=== PATIENT | female | born 1960 | race African-American/Black ===

== ENCOUNTER 2017-03-11 18:11 | Emergency (ER) | payer OTHER ==
[~2017-03-11] VITALS: Ht 175.3 cm; Wt 77.1 kg
[~2017-03-11 18:11] MED LIST: ALBUTEROL SULF8.5 GM INH; DILANTIN100 MG PO; HYDROCODON-ACE1 EA15 ORAL; IBUPROFEN600 M1 PO; IBUPROFEN600 MG ORAL; NORCO 5-325 TA1 EACH ORAL; TRAMADOL HCL50 MG ORAL; VALIUM5 MG ORAL; VICODIN 5-5001 EACH PO
[2017-03-11] MEDS ORDERED: Ketorolac 30mg Inj IV ONE (18:45)
[2017-03-11] MEDS ORDERED: DiphenhydrAMINE 50mg/ml Inj IVP ONE (18:45)
[2017-03-11] MEDS ORDERED: Metoclopramide 10mg/2ml Inj IVP ONE (18:45)
[2017-03-11] MEDS ORDERED: Morphine Sulfate 4mg/ml Inj IVP ONE (18:45)
[2017-03-11 18:58] VITALS: BP 119/85
[2017-03-11 19:12] LABS: APPEARANCE,URINE CLEAR; KETONES,URINE 1+ (NEGATIVE); LEUKOCYTE ESTERASE ,URINE 3+ (NEGATIVE); NITRITE,URINE NEGATIVE (NEGATIVE); PH,URINE 5 (4.5-8.0); PROTEIN,URINE 1+ (NEGATIVE); UROBILINOGEN,URINE 8 MG/DL (0.0-1.0)
[2017-03-11 19:14] LABS: BASOPHILS % (AUTO) 1.3 % (0.0-2.0); EOSINOPHILS % (AUTO) 1.1 % (0.0-3.0); LYMPHOCYTES % (AUTO) 31.3 % (20.0-45.0); MEAN CORPUSCULAR HEMOGLOBIN 29.4 PG (27.0-31.0); MEAN CORPUSCULAR HGB CONC 34.5 G/DL (32.0-36.0); MEAN CORPUSCULAR VOLUME 85 FL (80-99); MEAN PLATELET VOLUME 8.7 FL (6.5-10.1); MONOCYTES % (AUTO) 5.3 % (1.0-10.0); NEUTROPHILS % (AUTO) 60.9 % (45.0-75.0); PLATELET COUNT 273 K/UL (150-450); RED BLOOD COUNT 5.06 M/UL (4.20-5.40); RED CELL DISTRIBUTION WIDTH 12.8 % (11.6-14.8); WHITE BLOOD COUNT 9.8 K/UL (4.8-10.8)
[2017-03-11 19:21] LABS: BACTERIA,URINE MODERATE /HPF; SQUAMOUS EPITHELIAL CELL,UR FEW /LPF (NONE/OCC)
[2017-03-11 19:30] LABS: ALANINE AMINOTRANSFERASE 18 U/L (3-33); ALBUMIN/GLOBULIN RATIO 1.1 (1.0-2.7); ANION GAP 15 (5-15); ASPARTATE AMINO TRANSFERASE 19 U/L (5-40); CALCIUM 9.8 mg/dL (8.6-10.2); CARBON DIOXIDE 27 mEQ/L (20-30); CHLORIDE 100 mEQ/L (98-107); CREATININE 0.9 mg/dL (0.5-0.9); GLOMERULAR FILTRATION RATE > 60 mL/min (>60); HEMOLYSIS 4; LIPASE 21 U/L (< 60); POTASSIUM 4.1 mEQ/L (3.4-4.9); SODIUM 142 mEQ/L (135-145); TOTAL PROTEIN 7.8 g/dL (6.6-8.7)
--- NOTE | 2017-03-11 19:39 | Emergency Room Report ---
History of Present Illness General Chief Complaint: Headache Source: Patient (TERRA KATZ M.D.) Present Illness HPI 56-year-old female presents to ED complaining of headache x4 days. Notes headache as throbbing behind both eyes radiating to the back of the head. 10 out of 10. Denies photophobia, blurry vision. Denies nausea or vomiting. Denies neck stiffness fevers or chills. Notes history of migraines. Patient also notes history of seizures and takes Dilantin. She has not seen her neurologist in some time. No other aggravating or relieving factors. Denies any other associated symptom (TERRA KATZ M.D.) Allergies: Coded Allergies: No Known Allergies (Unverified , 12/29/15) Patient History Past Medical History: asthma, GERD, seizures, migraines Past Surgical History: none Pertinent Family History: none Social History: Denies: alcohol use, drug use, smoking Now: No Immunizations: UTD Reviewed Nursing Documentation: PMH: Agreed, PSxH: Agreed (TERRA KATZ M.D.) Nursing Documentation-PMH Past Medical History: No History, Except For Hx Cardiac Problems: Yes Hx Asthma: Yes Hx Gastrointestinal Problems: Yes - gastritis Hx Neurological Problems: Yes - Migraine Hx Seizures: Yes (TERRA KATZ M.D.) Review of Systems All Other Systems: negative except mentioned in HPI (TERRA KATZ M.D.) Physical Exam Vital Signs Date Time Temp Pulse Resp B/P Pulse Ox O2 Delivery O2 Flow Rate FiO2 20/17 18:24 99.0 72 16 114/72 97 Room Air Sp02 EP Interpretation: reviewed, normal General Appearance: no apparent distress, alert, GCS 15, non-toxic Head: normocephalic, atraumatic Eyes: bilateral eye PERRL, bilateral eye normal inspection ENT: hearing grossly normal, normal pharynx, no angioedema, normal voice Neck: full range of motion, supple, no meningismus, supple/symm/no masses Respiratory: chest non-tender, lungs clear, normal breath sounds, speaking full sentences Cardiovascular #1: regular rate, rhythm, no edema Cardiovascular #2: 2+ carotid (R), 2+ carotid (L), 2+ radial (R), 2+ radial (L) , 2+ dorsalis pedis (R), 2+ dorsalis pedis (L) Gastrointestinal: normal bowel sounds, non tender, soft, non-distended, no guarding, no rebound Rectal: deferred Genitourinary: normal inspection, no CVA tenderness Musculoskeletal: back normal, gait/station normal, normal range of motion, non- tender Neurologic: alert, oriented x3, responsive, motor strength/tone normal, sensory intact, speech normal Psychiatric: judgement/insight normal, memory normal, mood/affect normal, no suicidal/homicidal ideation Reflexes: 3+ bicep (R), 3+ bicep (L), 3+ tricep (R), 3+ tricep (L), 3+ knee (R) , 3+ knee (L) Skin: normal color, no rash, warm/dry, well hydrated Lymphatic: no adenopathy (TERRA KATZ M.D.) Medical Decision Making Diagnostic Impression: Primary Impression: Headache Qualified Codes: R51 - Headache Additional Impression: UTI (urinary tract infection) Qualified Codes: N30.00 - Acute cystitis without hematuria ER Course Since sign out to me from previous Dr. Patient presents with headache. No evidence of meningitis, bleed, or neoplastic process. She fell better now. She does have a urinary tract infection. We'll discharge home with antibiotics also. Lab Results Impression labs normal (JOAQUIM DYKES M.D.) Last Vital Signs Date Time Temp Pulse Resp B/P Pulse Ox O2 Delivery O2 Flow Rate FiO2 03/11/17 18:58 98.6 67 18 119/85 98 Room Air (TERRA KATZ M.D.) Status: improved (JOAQUIM DYKES M.D.) Disposition: HOME, SELF-CARE Condition: Stable Scripts Nitrofurantoin Monohyd/M-Cryst (Nitrofurantoin [place]-Mcr 100 mg) 100 Mg Capsule 100 MG ORAL Q12H, #14 CAP Prov: JOAQUIM DYKES M.D. 03/11/17 Ibuprofen* (MOTRIN*) 600 Mg Tablet 600 MG ORAL THREE TIMES A DAY, #30 TAB 0 Refills Prov: JOAQUIM DYKES M.D. 03/11/17 Referrals: [facility],REF[facility] (PCP) Patient Instructions: Migraine Headache Additional Instructions: Followup with your Dr. in 7 days. Return if symptom worsen. TERRA KATZ M.D. March 11, 2017 19:39 JOAQUIM DYKES M.D. March 11, 2017 20:11
[2017-03-11] MEDS ORDERED: cefTRIAXone 1 GM in NS 55 ML IVPB ONE (19:45)
[2017-03-11] MEDS ORDERED: IBUPROFEN600 MG ORAL (20:10)
[2017-03-11] MEDS ORDERED: MACROBID100 MG ORAL (20:10)
[2017-03-11 20:21] VITALS: BP 114/66
[2017-03-11 20:22] VITALS: BP 119/85
== END 2017-03-11 20:22 | disposition home or self-care (01) ==
LOC: EMR 18:48
DX: R51 Headache (principal); N30.00 Acute cystitis without hematuria; G40.909 Epilepsy, unspecified, not intractable, without status epilepticus; K21.9 Gastro-esophageal reflux disease without esophagitis; J45.909 Unspecified asthma, uncomplicated
CPT/HCPCS: 36415; 80053; 80300; 81003; 83690; 85025; 87086; 87181; 96360; 96361; 96374; 96375; 99284; J0696; J1200; J1885; J2765

== ENCOUNTER 2018-12-17 19:28 | Emergency (ER) | payer OTHER ==
[~2018-12-17] VITALS: Ht 175.3 cm; Wt 89.8 kg
[~2018-12-17 19:28] MED LIST changes: +MACROBID100 MG ORAL
--- NOTE | 2018-12-17 19:48 | NUR ---
ED Nurse Note: pt walked in due to bilateral eye redness and itchiness x 1 week. Right eye red with clear discharge noted. AO4. NAD. VSS
[2018-12-17 19:55] VITALS: BP 146/85
[2018-12-17] MEDS ORDERED: Tetracaine 0.5% Opth 4ml Soln RIGHT EYE ONE (20:30)
[2018-12-17] MEDS ORDERED: Fluorescein Strips RIGHT EYE ONE (20:30)
--- NOTE | 2018-12-17 20:49 | Emergency Room Report ---
History of Present Illness General Chief Complaint: Eye Problems Present Illness HPI 58-year-old female presents to the emergency department complaining of itching, erythema and burning sensation that she rates as 10 out of 10 in severity to the right thigh 1 week. Patient reports she was evaluated once an urgent care and had irrigation performed and was discharged. Patient states that she continues to have increased lacrimation and now some photo sensitivity. Patient denies contact lens use she did report initial foreign body scratching sensation which improved after irrigation urgent care. Patient denies loss of vision, floaters, changes in her vision, lid swelling or crusting. Patient did state that this morning upon awakening she felt as though her right eye was somewhat stuck shut. Allergies: Coded Allergies: No Known Allergies (Unverified , 12/29/15) Patient History Past Medical History: see triage record Past Surgical History: none Pertinent Family History: none Last Menstrual Period: a decade ago Now: No : 3 Para: 2 Reviewed Nursing Documentation: PMH: Agreed; PSxH: Agreed Nursing Documentation-PMH Hx Cardiac Problems: Yes Hx Asthma: Yes Hx Gastrointestinal Problems: Yes - gastritis Hx Neurological Problems: Yes - Migraine Hx Seizures: Yes Review of Systems All Other Systems: negative except mentioned in HPI Physical Exam Vital Signs Date Time Temp Pulse Resp B/P (MAP) Pulse Ox O2 Delivery O2 Flow Rate FiO2 12/17/18 19:40 97.9 71 16 146/85 98 Room Air Sp02 EP Interpretation: reviewed, normal General Appearance: no apparent distress, alert, GCS 15, non-toxic Head: normocephalic, atraumatic Eyes: right eye photophobia, right eye other - -Increase fluorescein uptake in a linear fashion in the 7 o'clock position of the Right eye, there is no involvement of the iris or pupil. Negative Laurita sign. ; bilateral eye normal inspection, bilateral eye PERRL, bilateral eye EOMI, bilateral eye visual acuity ENT: hearing grossly normal, normal voice Neck: full range of motion Respiratory: lungs clear, normal breath sounds, speaking full sentences Cardiovascular #1: regular rate, rhythm Musculoskeletal: back normal, gait/station normal, normal range of motion, non- tender Neurologic: alert, oriented x3, responsive, motor strength/tone normal, sensory intact, speech normal, grossly normal Psychiatric: judgement/insight normal Skin: normal color, no rash, warm/dry, well hydrated Lymphatic: no adenopathy Medical Decision Making PA Attestation Dr. Roque is my supervising Physician whom patient management has been discussed with. Diagnostic Impression: Primary Impression: Corneal abrasion, right Qualified Codes: S05.01XA - Injury of conjunctiva and corneal abrasion without foreign body, right eye, initial encounter ER Course 58-year-old female presents to the emergency department complaining of itching, erythema and burning sensation that she rates as 10 out of 10 in severity to the right thigh 1 week. Patient reports she was evaluated once an urgent care and had irrigation performed and was discharged. Patient states that she continues to have increased lacrimation and now some photo sensitivity. Patient denies contact lens use she did report initial foreign body scratching sensation which improved after irrigation urgent care. Patient denies loss of vision, floaters, changes in her vision, lid swelling or crusting. Patient did state that this morning upon awakening she felt as though her right eye was somewhat stuck shut. - Pt denies Contact lens use. Ddx considered but are not limited to: corneal abrasion, acute glaucoma, globe rupture, FB, Corneal Ulcer, conjunctivitis. Iridis Vital signs: are WNL, pt. is afebrile H&PE are most consistent with: corneal abrasion ORDERS: -Tetracaine and Fluorescein Stain of the Right eye: -Increase fluorescein uptake in a linear fashion in the 7 o'clock position of the Right eye, there is no involvement of the iris or pupil. Negative Laurita sign. Pt. had positive relief of pain with tetracaine drops. there was negative evidence of Fb, deep ulcer, or rupture. ED INTERVENTIONS: none at this time. DISCHARGE: At this time pt. is stable for d/c to home. Will provide printed patient care instructions, and any necessary prescriptions. Care plan and follow up instructions have been discussed with the patient prior to discharge. . Last Vital Signs Date Time Temp Pulse Resp B/P (MAP) Pulse Ox O2 Delivery O2 Flow Rate FiO2 12/17/18 19:55 97.9 97 16 146/85 98 Room Air Disposition: HOME, SELF-CARE Condition: Stable Scripts Acetaminophen* (TYLENOL EXTRA STRENGTH*) 500 Mg Tablet 500 MG ORAL Q6H, #20 TAB 0 Refills Prov: Kelsie Flores 12/17/18 Ofloxacin (OCUFLOX) 5 Ml Drops 2 DROP OP TID for 5 Days, #5 ML Prov: Kelsie Flores 12/17/18 Referrals: [facility],REFER (PCP) Patient Instructions: Corneal Abrasion, [id number] Additional Instructions: Take medications as directed. Follow up with a Ecotherapist in 3 days, even if your symptoms have resolved. --Please review list of primary care clinics, if you do not already have a primary care provider Return sooner to ED if new symptoms occur, or current symptoms become worse. - Please note that this Emergency Department Report was dictated using [employer] log clerk technology software, occasionally this can lead to erroneous entry secondary to interpretation by the dictation equipment. Kelsie Flores Dec 17, 2018 20:49
[2018-12-17] MEDS ORDERED: OCUFLOX5 ML OP (20:50)
[2018-12-17] MEDS ORDERED: TYLENOL EXTRA500 MG ORAL (20:51)
[2018-12-17 20:55] VITALS: BP 146/85
--- NOTE | 2018-12-17 20:55 | NUR ---
ED Nurse Note: Patient cleared cleared for discharge per ERMD. AO4. NAD. VSS. Patient given prescriptions and discharge instructions; verbalized understanding. ID removed. Patient ambulated steady out of ED with all belongings.
== END 2018-12-17 20:55 | disposition home or self-care (01) ==
LOC: EMR 20:00
DX: S05.01XA Injury of conjunctiva and corneal abrasion without foreign body, right eye, initial encounter (principal); X58.XXXA Exposure to other specified factors, initial encounter; Y92.9 Unspecified place or not applicable; J45.909 Unspecified asthma, uncomplicated
CPT/HCPCS: 99282

== ENCOUNTER 2020-01-14 13:28 | Emergency (ER) | payer OTHER ==
[~2020-01-14] VITALS: Ht 175.3 cm; Wt 79.4 kg
[~2020-01-14 13:28] MED LIST changes: +OCUFLOX5 ML OP; +TYLENOL EXTRA500 MG ORAL
--- NOTE | 2020-01-14 13:52 | NUR ---
ED Nurse Note: pt presents from home with c/o body aches, chills and productive cough of clear mucous. denies fever or n/v. no dyspnea at triage. a/ox4
[2020-01-14 13:54] VITALS: BP 131/67
[2020-01-14] MEDS ORDERED: TAMIFLU75 MG ORAL (14:22)
[2020-01-14] MEDS ORDERED: ALBUTEROL SULF8.5 GM INH (14:22)
[2020-01-14] MEDS ORDERED: PREDNISONE20 MG ORAL (14:22)
[2020-01-14] MEDS ORDERED: PROMETHAZINE-D118 ML ORAL (14:22)
[2020-01-14] MEDS ORDERED: Ipratropium 0.02% Inh Soln 2.5ml UD HHN ONE (14:30)
[2020-01-14] MEDS ORDERED: Albuterol ud Inhalation HHN ONE (14:30)
--- NOTE | 2020-01-14 14:31 | NUR ---
ED Nurse Note: resp therapist here to administer hhn. pt tolerates po meds well.
--- NOTE | 2020-01-14 14:51 | NUR ---
ED Nurse Note: pt relates feeling improved after hhn given.
--- NOTE | 2020-01-14 14:53 | NUR ---
ED Nurse Note: Pt cleared by health care Provider for discharge. DC instructions/prescription was given and explained to pt and verbalized understanding of teachings. All medical devices such as ID band removed. Pt is AAO x4, ambulatory and left with all personal belongings. covid19 discussed and pt aware precautions
[2020-01-14 14:54] VITALS: BP 131/67
--- NOTE | 2020-01-14 15:47 | Emergency Room Report ---
History of Present Illness General Chief Complaint: Flu Like Symptoms Source: Patient Present Illness HPI 59-year-old female presents ED for evaluation. Complaining of cough sore throat body aches and chills for the last 4 days. Pain is dull, 7 out of 10, nonradiating. Cough is productive with yellowish phlegm. Notes history of asthma. Vaccinations up-to-date received flu shot this year. Denies sick contacts or recent travel. No other aggravating relieving factors. Denies any other associated symptoms Allergies: Coded Allergies: PENICILLINS (Verified Allergy, Unknown, 01/14/20) COVID-19 Screening Contact w/high risk pt: No Recent Travel to affected area: No Experienced COVID-19 symptoms?: Yes COVID-19 symptoms experienced: Cough, Flu-Like Symptoms Patient History Past Medical History: asthma, GERD, migraines Past Surgical History: none Pertinent Family History: none Social History: Denies: smoking, alcohol use, drug use Last Menstrual Period: na Now: No Immunizations: UTD Reviewed Nursing Documentation: PMH: Agreed; PSxH: Agreed Nursing Documentation-PMH Past Medical History: No History, Except For Hx Cardiac Problems: Yes Hx Asthma: Yes Hx Gastrointestinal Problems: Yes - gastritis Hx Neurological Problems: Yes - Migraine Hx Seizures: Yes Review of Systems All Other Systems: negative except mentioned in HPI Physical Exam Vital Signs Date Time Temp Pulse Resp B/P (MAP) Pulse Ox O2 Delivery O2 Flow Rate FiO2 01/14/20 13:27 98.2 71 18 131/67 (88) 97 Room Air Sp02 EP Interpretation: reviewed, normal General Appearance: no apparent distress, alert, GCS 15, non-toxic Head: normocephalic, atraumatic Eyes: bilateral eye normal inspection, bilateral eye PERRL ENT: hearing grossly normal, normal pharynx, no angioedema, normal voice Neck: full range of motion, supple/symm/no masses Respiratory: chest non-tender, lungs clear, speaking full sentences, wheezing Cardiovascular #1: regular rate, rhythm, no edema Cardiovascular #2: 2+ carotid (R), 2+ carotid (L), 2+ radial (R), 2+ radial (L) , 2+ dorsalis pedis (R), 2+ dorsalis pedis (L) Gastrointestinal: normal bowel sounds, non tender, soft, non-distended, no guarding, no rebound Rectal: deferred Genitourinary: normal inspection, no CVA tenderness Musculoskeletal: back normal, normal range of motion, gait/station normal, non- tender Neurologic: alert, motor strength/tone normal, oriented x3, sensory intact, responsive, speech normal Psychiatric: judgement/insight normal, memory normal, mood/affect normal, no suicidal/homicidal ideation Reflexes: 3+ bicep (R), 3+ bicep (L), 3+ tricep (R), 3+ tricep (L), 3+ knee (R) , 3+ knee (L) Lymphatic: no adenopathy Medical Decision Making Diagnostic Impression: Primary Impression: Influenza-like symptoms ER Course Hospital Course 59-year-old female presents to ED complaining of cough, bodyaches, chills Differential diagnoses include: URI, bronchitis, asthma/COPD, pneumonia Clinical course Patient placed in isolation tent. I wore full protective equipment.. After initial history and physical I ordered prednisone and nebulizer treatment. Upon reassessment patient states cough and symptoms have improved. Discussed findings with patient. Afebrile, nontoxic-appearing. Vitals stable. I discussed that she may have coronavirus. Will discharge home with Tamiflu for presumed flu. However recommend going home and self quarantining 10 days. I also stated that her close contacts need to do this as well. Safe for discharge for close outpatient follow-up. States she has a PMD Diagnosis - influenza like symptoms Stable and discharged home with prescriptions for Rx prednisone, promethzine, tamiflu, albuterol. self-isolate for 14 days. Instructed to followup with PMD. Return to ED if symptoms recur or worsen Last Vital Signs Date Time Temp Pulse Resp B/P (MAP) Pulse Ox O2 Delivery O2 Flow Rate FiO2 01/14/20 14:54 71 18 131/67 97 Room Air 01/14/20 13:54 98.2 Status: improved Disposition: HOME, SELF-CARE Condition: Stable Scripts Albuterol Sulfate* (ALBUTEROL SULFATE MDI*) 8.5 Gm Hfa.aer.ad 2 PUFF INH Q6H, #1 EA 0 Refills Prov: Tod Acosta MD 01/14/20 D-Methorphan Hb/Prometh Hcl* (PROMETHAZINE-DM SYRUP*) 118 Ml Syrup 5 ML ORAL Q6H PRN for For Cough, #118 ML 0 Refills Prov: Tod Acosta MD 01/14/20 Prednisone* (PREDNISONE*) 20 Mg Tablet 40 MG ORAL DAILY, #10 TAB Prov: Tod Acosta MD 01/14/20 Oseltamivir Phosphate (Tamiflu) 75 Mg Capsule 75 MG ORAL TWICE A DAY for 5 Days, CAP Prov: Tod Acosta MD 01/14/20 Referrals: [facility] (PCP) Patient Instructions: Influenza, Adult, Lonx-[id number] Additional Instructions: you may have coronavirus. you need to go home and self-isolate. your close contacts need to self-isolate. Tod Acosta MD Jan 14, 2020 15:47
== END 2020-01-14 14:57 | disposition home or self-care (01) ==
LOC: EMR 14:19
DX: R05 Cough (principal); R52 Pain, unspecified; Z88.0 Allergy status to penicillin; K21.9 Gastro-esophageal reflux disease without esophagitis; Z03.818 Encounter for observation for suspected exposure to other biological agents ruled out
CPT/HCPCS: J7512; Z7502; 99284

== ENCOUNTER 2020-07-15 19:05 | Emergency (ER) | payer MEDICAID, OTHER ==
[~2020-07-15] VITALS: Ht 167.6 cm; Wt 90.7 kg
[~2020-07-15 19:05] MED LIST changes: +PREDNISONE20 MG ORAL; +PROMETHAZINE-D118 ML ORAL; +TAMIFLU75 MG ORAL
--- NOTE | 2020-07-15 19:16 | NUR ---
ED Nurse Note: pt presents to ED c/o SOB x 3 days. pt reports that she has a h/o asthma that she uses an albuterol inhaler for, she used it 3x today without relief of symptoms. pt is also noted to have a fever or 100.1. pt also has also had a "dry cough" for 3 days. Addendum: 07/15/20 at 1918 by AMIE fever is 100.0
[2020-07-15 19:17] VITALS: BP 124/78
--- NOTE | 2020-07-15 19:40 | NUR ---
ED Nurse Note: xray is at pt bedside
--- NOTE | 2020-07-15 20:16 | Emergency Room Report ---
History of Present Illness General Chief Complaint: Dyspnea/Respdistress Source: Patient, Medical Record Present Illness HPI Disclaimer: Please note that this report is being documented using tapviva technology. This can lead to erroneous entry secondary to incorrect interpretation by the dictating instrument. HPI: 59-year-old female history of asthma presents for evaluation of cough and shortness of breath. Symptoms present several days. She states she has been using her albuterol inhaler with no significant relief of symptoms. Cough is nonproductive. She denies marquita fever or chills. Denies chest pain or pressure. Denies recent travel or sick contacts other than her . is also in the emergency department presenting with similar symptoms. PMH: Asthma PSH: Denied Allergies: Penicillin Social Hx: Denied Allergies: Coded Allergies: PENICILLINS (Verified Allergy, Unknown, 01/14/20) COVID-19 Screening Contact w/high risk pt: No Recent Travel to affected area: No Experienced COVID-19 symptoms?: Yes COVID-19 symptoms experienced: Cough, Flu-Like Symptoms COVID-19 Testing performed REIMBURSEMENT DIRECTOR: No Nursing Documentation-PMH Hx Cardiac Problems: Yes Hx Asthma: Yes Hx Gastrointestinal Problems: Yes - gastritis Hx Neurological Problems: Yes - Migraine Hx Seizures: Yes Review of Systems All Other Systems: negative except mentioned in HPI Physical Exam Vital Signs Date Time Temp Pulse Resp B/P (MAP) Pulse Ox O2 Delivery O2 Flow Rate FiO2 07/15/20 19:11 100.0 108 30 124/78 (93) 97 Room Air General: Awake and alert, borderline fever HEENT: NC/AT. EOMI. Cardiovascular: Mildly tachycardic. S1 and S2 normal. No murmur appreciated Resp: Normal work of breathing. Intermittent cough during exam. Nonproductive. Mildly tachypneic. No wheezing heard Skin: Intact. No abrasions, laceration or rash over the exposed skin MSK: Normal tone and bulk. Moving all extremities. No obvious deformity. Neuro: Awake and alert. Mentating appropriately. Medical Decision Making Diagnostic Impression: Primary Impression: COVID-19 Additional Impression: Asthma ER Course 59-year-old female history of asthma presents for evaluation of cough shortness of breath over the past few days. is at home experiencing similar symptoms. Differential includes is not limited to URI, pneumonia, bronchitis, COPD exacerbation, asthma exacerbation, COVID-19 infection. Patient has tested positive for the COVID-19 virus by rapid test. X-ray does not show an obvious consolidation with there is some streaky atelectasis at the bases bilaterally. Will treat with azithromycin and start on prednisone for mild asthma exacerbation. We will refill her other medications. Stable for outpatient follow-up. Do not believe she requires other emergent labs or imaging at this time. We will follow-up with her PMD. Quarantine precautions discussed with patient and her who is also in the emergency department today. They understand and agree with this treatment plan. Chest X-Ray Diagnostic Results Chest X-Ray Diagnostic Results : Chest X-Ray Ordered: Yes # of Views/Limited/Complete: 1 View Indication: Shortness of Breath EP Interpretation: Yes Interpretation: no consolidation, no effusion, no pneumothorax, other - Streaky atelectasis left lower lobe Impression: Other - Atelectasis Electronically Signed by: Electronically signed by Dr. Pietro Fair Last Vital Signs Date Time Temp Pulse Resp B/P (MAP) Pulse Ox O2 Delivery O2 Flow Rate FiO2 07/15/20 19:17 100.0 108 30 124/78 97 Room Air Disposition: HOME, SELF-CARE Condition: Stable Scripts Azithromycin* (ZITHROMAX*) 250 Mg Tablet 250 MG ORAL DAILY, #6 TAB 0 Refills Take two tables once daily for 1 day, then one tablet once daily for 4 days. Prov: Pietro Fair MD 07/15/20 Albuterol Sulfate (VENTOLIN HFA) 18 Gm Hfa.aer.ad 1 PUFF INH EVERY 6 HOURS, #18 GM 0 Refills Prov: Pietro Fair MD 07/15/20 Prednisone* (PREDNISONE*) 20 Mg Tablet 40 MG ORAL DAILY, #10 TAB Prov: Pietro Fair MD 07/15/20 Acetaminophen* (TYLENOL EXTRA STRENGTH*) 500 Mg Tablet 500 MG ORAL Q6H, #20 TAB 0 Refills Prov: Pietro Fair MD 07/15/20 Referrals: NON PHYSICIAN (PCP) Pietro Fair MD Jul 15, 2020 20:16
[2020-07-15] MEDS ORDERED: PREDNISONE20 MG ORAL (20:40)
[2020-07-15] MEDS ORDERED: VENTOLIN HFA18 GM INH (20:40)
[2020-07-15] MEDS ORDERED: TYLENOL EXTRA500 MG ORAL (20:40)
[2020-07-15] MEDS ORDERED: ZITHROMAX250 MG ORAL (20:55)
[2020-07-15 21:10] VITALS: BP 124/78
--- NOTE | 2020-07-15 21:10 | NUR ---
ER DISCHARGE NOTE: Patient is cleared to be discharged per ERMD, pt is aox4, on room air, with stable vital signs. pt was given dc and prescription instructions, as well as self isolation and social distancing recommendations. pt and were able to verbalize understanding, pt id band removed without complications. pt is able to ambulate with steady gait. pt took all belongings.
--- NOTE | 2020-07-16 15:38 | Diagnostic Imaging Report ---
Procedure: XRAY Chest 1v Reason for study: Reason For Exam: SOB Comparison films: None. FINDINGS: A single one view chest is obtained. Vascularity is normal. Linear atelectasis or scarring noted left lung base. There is no acute alveolar process. Cardiac and mediastinal silhouette are within normal limits. CP angles are sharp. The bony thorax appear unremarkable. IMPRESSION: Linear atelectasis versus scarring left lung base.
== END 2020-07-15 21:10 | disposition home or self-care (01) ==
LOC: EMR 19:25
DX: U07.1 COVID-19 (principal); J45.909 Unspecified asthma, uncomplicated; J98.11 Atelectasis; G40.909 Epilepsy, unspecified, not intractable, without status epilepticus; Z88.0 Allergy status to penicillin
CPT/HCPCS: 71045; J7512; U0002; Z7502; 99283

== ENCOUNTER 2020-07-30 13:11 | Emergency (ER) | payer OTHER ==
[~2020-07-30] VITALS: Ht 175.3 cm; Wt 81.6 kg
[~2020-07-30 13:11] MED LIST changes: +VENTOLIN HFA18 GM INH; +ZITHROMAX250 MG ORAL
[2020-07-30 13:25] VITALS: BP 159/73
--- NOTE | 2020-07-30 13:25 | NUR ---
ED Nurse Note: PT walked in to ed for "follow up" due to pt was tested covid + 07/15/20. pt currenty presents with no S/Sx
--- NOTE | 2020-07-30 14:48 | Emergency Room Report ---
History of Present Illness General Chief Complaint: General Complaint Source: Patient (Kelsie Flores) Present Illness HPI 59-year-old female who has a history of asthma presents to the emergency department for follow-up after being tested positive approximately 2 weeks ago for COVID-19. Patient was seen in the ER previously for upper respiratory symptoms including wheezing that was not resolving. Patient reports that she was given several medications and her symptoms have resolved. Patient reports slight residual cough she denies mucus production. She denies fevers, chills, shortness of breath, chest pain, headaches, dizziness. No other aggravating or relieving factors at this time. 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 (Kelsie Flores) Patient History Past Medical History: see triage record, asthma Past Surgical History: none Pertinent Family History: none Last Menstrual Period: na Now: No Immunizations: UTD Reviewed Nursing Documentation: PMH: Agreed; PSxH: Agreed (Kelsie Flores) Nursing Documentation-PMH Past Medical History: No History, Except For Hx Cardiac Problems: Yes Hx Asthma: Yes Hx Gastrointestinal Problems: Yes - gastritis Hx Neurological Problems: Yes - Migraine Hx Seizures: Yes (Kelsie Flores) Review of Systems All Other Systems: negative except mentioned in HPI (Kelsie Flores) Physical Exam Vital Signs Date Time Temp Pulse Resp B/P (MAP) Pulse Ox O2 Delivery O2 Flow Rate FiO2 07/30/20 13:17 98.1 69 16 159/73 (101) 98 Room Air Sp02 EP Interpretation: reviewed, normal General Appearance: no apparent distress, alert, GCS 15, non-toxic Head: normocephalic, atraumatic Eyes: bilateral eye normal inspection, bilateral eye PERRL ENT: hearing grossly normal, normal voice Neck: full range of motion Respiratory: chest non-tender, lungs clear, normal breath sounds, no respiratory distress, no accessory muscle use, no wheezing, speaking full sentences Cardiovascular #1: regular rate, rhythm, no edema, normal capillary refill Musculoskeletal: normal range of motion, digits/nails normal, gait/station normal, non-tender Neurologic: alert, motor strength/tone normal, oriented x3, sensory intact, responsive, speech normal Psychiatric: judgement/insight normal Skin: no rash, normal color Lymphatic: no adenopathy (Kelsie Flores) Medical Decision Making PA Attestation Dr. De Souza is my supervising Physician whom patient management has been discu ssed with. (Kelsie Flores) Diagnostic Impression: Primary Impression: Recent upper respiratory tract infection Additional Impression: Asthma Qualified Codes: J45.20 - Mild intermittent asthma, uncomplicated ER Course 59-year-old female who has a history of asthma presents to the emergency department for follow-up after being tested positive approximately 2 weeks ago for COVID-19. Patient was seen in the ER previously for upper respiratory symptoms including wheezing that was not resolving. Patient reports that she was given several medications and her symptoms have resolved. Patient reports slight residual cough she denies mucus production. She denies fevers, chills, shortness of breath, chest pain, headaches, dizziness. No other aggravating or relieving factors at this time. Ddx considered but are not limited to URI, pneumonia, PE, strep pharyngitis, meningitis, COVID-19 Vital signs: Pt. is afebrile, the remaining VS are WNL, normal oxygen saturation. H&PE are most consistent with resolved viral URI- no meningeal signs, oropharynx is not involved, no evidence of bacterial infection at this time. Pt. not in respiratory distress. She is non-toxic in appearance. ORDERS: -CXR: Unremarkable ED INTERVENTIONS: None required at this time. --PT. EDUCATION: Discussed w. patient facilities and local resources that can perform COVID-19 testing for her own knowledge that is done on a non-emergent basis. D/w pt. PCP follow up as well for testing and AB screening. D/w pt. that I do not identify and acute emergent condition at this time, and that she is presenting in a stable manner and a strong candidate for close outpatient follow up. DISCHARGE: At this time pt. is stable for d/c to home. Will provide printed patient care instructions, and any necessary prescriptions. Care plan and follow up instructions have been discussed with the patient prior to discharge. (Kelsie Flores) ER Course The patient was nontoxic with benign vital signs. They did not meet admission criteria and was stable for outpatient therapy, under the current guideline. The patient was instructed to be home quarantined, and appropriate precautions were given. The patient was educated and instructed to notify a healthcare professional if they develop difficulty breathing, chest pain, palpitations, fever or other concerning symptoms. These instructions were given to the patient in both verbal and written forms. The patient was given an opportunity to ask questions. The patient was discharged with written instructions for COVID-19, including strict ED return precautions. (Malissa De Souza D.O.) Chest X-Ray Diagnostic Results Chest X-Ray Diagnostic Results : Chest X-Ray Ordered: Yes # of Views/Limited/Complete: 1 View Indication: Shortness of Breath EP Interpretation: Yes PA Xray: Interpretation reviewed, by supervising MD, and agrees with findings. Interpretation: no consolidation, no effusion, no pneumothorax, no acute cardiopulmonary disease Impression: No acute disease Electronically Signed by: Kelsie Flores PA-C (Kelsie Flores) Last Vital Signs Date Time Temp Pulse Resp B/P (MAP) Pulse Ox O2 Delivery O2 Flow Rate FiO2 07/30/20 13:25 69 16 Room Air 07/30/20 13:25 98.1 159/73 98 Status: improved (Kelsie Flores) Disposition: HOME, SELF-CARE Condition: Stable Scripts D-Methorphan Hb/Prometh Hcl* (PROMETHAZINE-DM SYRUP*) 118 Ml Syrup 5 ML ORAL Q6H PRN for For Cough, #120 ML 0 Refills Prov: Kelsie Flores 07/30/20 Guaifenesin (Mucinex) 1,200 Mg Tab.er.12h 1200 MG PO Q12HR for 7 Days, #14 TAB Prov: Kelsie Flores 07/30/20 Referrals: NON PHYSICIAN (PCP) Patient Instructions: Medical Screening Exam Additional Instructions: Take medications as directed. Follow up with a Primary Care Provider in 3-5 days, even if your symptoms have resolved. Recommend COVID-19 Antibody Testing over rapid testing as this will confirm that you have some temporary immunity or not. Return sooner to ED if new symptoms occur, or current symptoms become worse. - Please note that this Emergency Department Report was dictated using [employer] service clerk technology software, occasionally this can lead to erroneous entry secondary to interpretation by the dictation equipment. Kelsie Flores Jul 30, 2020 14:48 Malissa De Souza D.O. Jul 31, 2020 09:30
[2020-07-30] MEDS ORDERED: PROMETHAZINE-D118 ML ORAL (15:14)
[2020-07-30] MEDS ORDERED: MUCINEX1200 MG PO (15:14)
[2020-07-30 15:21] VITALS: BP 150/70
--- NOTE | 2020-07-30 15:21 | NUR ---
ER DISCHARGE NOTE: Patient is cleared to be discharged per ERMD, pt is aox4, on room air, with stable vital signs. pt was given dc and prescription instructions, pt was able to verbalize understanding, pt id band removed without complications. pt is able to ambulate with steady gait. pt took all belongings.
--- NOTE | 2020-07-30 16:20 | Diagnostic Imaging Report ---
Indication: Chest pain Technique: One view of the chest Comparison: 07/15/2020 Findings: Lungs and pleural spaces are clear. Heart size is normal. No significant change Impression: No acute process
== END 2020-07-30 15:21 | disposition home or self-care (01) ==
LOC: EMR 13:58
DX: J45.909 Unspecified asthma, uncomplicated (principal); Z86.19 Personal history of other infectious and parasitic diseases; G40.909 Epilepsy, unspecified, not intractable, without status epilepticus; Z88.0 Allergy status to penicillin
CPT/HCPCS: 71045; Z7502; 99283

== ENCOUNTER 2021-01-19 12:09 | Emergency (ER) | payer OTHER ==
[~2021-01-19 12:09] MED LIST changes: +CYCLOBENZAPRINE10 MG ORAL; +IBUPROFEN600 M1 ORAL; +MUCINEX1200 MG PO; +VOLTAREN100 G1 TP
--- NOTE | 2021-01-20 15:55 | Emergency Room Report ---
History of Present Illness General Chief Complaint: To Be Triaged Present Illness Allergies: Coded Allergies: PENICILLINS (Verified Allergy, Unknown, 09/24/20) COVID-19 Screening Contact w/high risk pt: No Recent Travel to affected area: No Experienced COVID-19 symptoms?: No COVID-19 symptoms experienced: Cough, Flu-Like Symptoms Nursing Documentation-PMH Hx Cardiac Problems: Yes - MD Hx Asthma: Yes Hx Gastrointestinal Problems: Yes - gastritis Hx Neurological Problems: Yes - Migraine Hx Seizures: Yes Medical Decision Making Diagnostic Impression: Primary Impression: lwbs ER Course Patient left without being seen Status: unchanged Disposition: LEFT W/OUT BEING SEEN Condition: Unknown Referrals: NOT CHOSEN IPA/,REFERRING (PCP) Tod Acosta MD Jan 20, 2021 15:55
== END 2021-01-19 12:48 | disposition left against medical advice (07) ==
LOC: EMR 12:45
DX: Z53.21 Procedure and treatment not carried out due to patient leaving prior to being seen by health care provider (principal)